=== PATIENT | female | born 1990 | race Asian ===

== ENCOUNTER 2021-10-01 01:43 | Emergency (ER) | payer OTHER ==
[~2021-10-01] VITALS: Ht 160 cm; Wt 46.7 kg
--- NOTE | 2021-10-01 01:45 | NUR ---
Pt c/o SOB, chest tightness and intermittent C/P x 5 days. Pt states she's not sure if the pain is related to gastris. Pt also states that pain to her mid chest occurs when she eats donuts. Pain elicited with deep inspirations and per palpation to chest wall. Dr. Espinosa made aware, EKG performed and given to Dr. Espinosa. Per Dr. Espinosa, pt okay to wait in ER waiting room. Pt to ER waiting room in stable condition.
[2021-10-01 01:50] VITALS: BP_SYST 123
[2021-10-01] MEDS ORDERED: FAMO40TA71 PO (02:28)
--- NOTE | 2021-10-01 04:00 | NUR ---
Patient called in, no answer. Patient left without being seen. ER MD aware
== END 2021-10-01 04:00 | disposition left against medical advice (07) ==
LOC: SED 01:43
DX: R06.02 Shortness of breath (principal); Z53.21 Procedure and treatment not carried out due to patient leaving prior to being seen by health care provider
CPT/HCPCS: 71045; 93005

== ENCOUNTER 2021-12-01 01:27 | Emergency (ER) | payer OTHER ==
[~2021-12-01] VITALS: Ht 162.6 cm; Wt 47.6 kg
[~2021-12-01 01:27] MED LIST: FAMO40TA71 PO
[2021-12-01 01:32] VITALS: BP_SYST 110
--- NOTE | 2021-12-01 01:45 | NUR ---
Patient to ER bed 8 to gown for evaluation. Side rails up.
[2021-12-01] MEDS ORDERED: LORazepam 2 MG/ML VIAL IM ONE (02:00)
--- NOTE | 2021-12-01 02:05 | NUR ---
Pt awake a/o x4. speech clear and coherent. pt c/o chest pain upon awakening and palpitations. denies sob. denies n/v/d/fever. Dr Cosby at bedside for eval. placed on cardiac monitoring.will continue to monitor.
[2021-12-01 03:33] LABS: BASOPHILS % (AUTO) 0.7 % (0.0-2.0); EOSINOPHILS # (AUTO) 0.1 K/uL (0.0-0.4); EOSINOPHILS % (AUTO) 1.7 % (0.0-4.0); HEMOGLOBIN 12.1 g/dL (12.0-16.0); LYMPHOCYTES # (AUTO) 2.3 K/uL (1.0-5.5); LYMPHOCYTES % (AUTO) 34.3 % (20.5-51.5); MEAN CORPUSCULAR HEMOGLOBIN 31 pg (27-31); MEAN CORPUSCULAR HGB CONC 34 % (32-36); MEAN CORPUSCULAR VOLUME 90 fL (79.0-98.0); MONOCYTES # (AUTO) 0.7 K/uL (0.0-1.0); MONOCYTES % (AUTO) 10.5 % (1.7-9.3); NEUTROPHILS # (AUTO) 3.5 K/uL (1.8-7.7); NEUTROPHILS % (AUTO) 52.8 % (40.0-70.0); PLATELET COUNT (AUTO) 297 K/uL (130-430); RED BLOOD CELL COUNT(AUTO) 3.91 MIL/uL (4.2-6.2); RED CELL DISTRIBUTION WIDTH 12.8 % (9.0-15.0); WHITE BLOOD COUNT (AUTO) 6.6 K/uL (4.8-10.8)
[2021-12-01 03:45] LABS: CALCIUM 8.5 mg/dL (8.4-11.0); CREATININE 0.51 mg/dL (0.55-1.30); POTASSIUM 3.9 mmol/L (3.5-5.1)
[2021-12-01 03:59] LABS: ALBUMIN 3.7 g/dL (3.4-4.8); THYROID STIMULATING HORMONE 1.53 uIu/mL (0.36-3.74); TOTAL BILIRUBIN 0.1 mg/dL (0.0-1.0)
--- NOTE | 2021-12-01 04:31 | NUR ---
Dr Cosby at bedside speaking with pt
--- NOTE | 2021-12-01 04:35 | NUR ---
Pt awake a/o x4. ACI reviewed with pt by Dr Cosby. Pt d/c'd by Dr Cosby. Dr Cosby aware of hr 103, continue with DC. ambulatory with steady gait unassisted. nad.
[2021-12-01 04:37] VITALS: BP_SYST 106
== END 2021-12-01 04:37 | disposition home or self-care (01) ==
LOC: SED 01:27
DX: F41.0 Panic disorder [episodic paroxysmal anxiety] (principal)
CPT/HCPCS: 36415; 80053; 84443; 85025; 93005; 96372; 99284; J2060

== ENCOUNTER 2022-01-12 16:18 | Emergency (ER) | payer OTHER ==
[~2022-01-12] VITALS: Ht 157.5 cm; Wt 49.9 kg
[2022-01-12 16:18] VITALS: BP_SYST 127
[2022-01-12] MEDS ORDERED: FAMOTIDINE 20 MG TABLET PO ONE (16:45)
[2022-01-12] MEDS ORDERED: ONDANSETRON 4 MG ODT TAB PO ONE (16:45)
[2022-01-12] MEDS ORDERED: ACETAMINOPHEN 500 MG TABLET PO ONE (16:45)
[2022-01-12 17:26] LABS: CALCIUM 9.7 mg/dL (8.4-11.0); CREATININE 0.53 mg/dL (0.55-1.30); POTASSIUM 3.2 mmol/L (3.5-5.1)
[2022-01-12 17:34] LABS: ALBUMIN 4.2 g/dL (3.4-4.8); TOTAL BILIRUBIN 0.2 mg/dL (0.0-1.0)
[2022-01-12] MEDS ORDERED: POTASSIUM CHLORIDE 20 MEQ/PKT PACKET PO ONE (17:45)
[2022-01-12 18:24] LABS: HEMATOCRIT 37.6 % (36-48); HEMOGLOBIN 12.6 g/dL (12.0-16.0); MEAN CORPUSCULAR HEMOGLOBIN 30 pg (27-31); MEAN CORPUSCULAR HGB CONC 34 % (32-36); MEAN CORPUSCULAR VOLUME 91 fL (79.0-98.0); PLATELET COUNT (AUTO) 261 K/uL (130-430); RED BLOOD CELL COUNT(AUTO) 4.14 MIL/uL (4.2-6.2); RED CELL DISTRIBUTION WIDTH 13.1 % (9.0-15.0); WHITE BLOOD COUNT (AUTO) 8.7 K/uL (4.8-10.8)
[2022-01-12 18:25] LABS: BASOPHILS % (AUTO) 0.5 % (0.0-2.0); EOSINOPHILS # (AUTO) 0.1 K/uL (0.0-0.4); EOSINOPHILS % (AUTO) 1.2 % (0.0-4.0); LYMPHOCYTES # (AUTO) 2.4 K/uL (1.0-5.5); MONOCYTES # (AUTO) 0.5 K/uL (0.0-1.0); MONOCYTES % (AUTO) 6.2 % (1.7-9.3); NEUTROPHILS # (AUTO) 5.6 K/uL (1.8-7.7); NEUTROPHILS % (AUTO) 64.1 % (40.0-70.0)
[2022-01-12] MEDS ORDERED: FAMO-132 PO (19:45)
[2022-01-12] MEDS ORDERED: ACET325T53 PO (19:45)
[2022-01-12 20:00] VITALS: BP_SYST 120
== END 2022-01-12 20:24 | disposition home or self-care (01) ==
LOC: SED 16:18
DX: R07.89 Other chest pain (principal); B34.9 Viral infection, unspecified; E87.6 Hypokalemia; K21.9 Gastro-esophageal reflux disease without esophagitis; Z79.899 Other long term (current) drug therapy
CPT/HCPCS: 36415; 71045; 80053; 83690; 84484; 85025; 93005; 99285; Q0162